=== PATIENT | female | born 1985 | race Caucasian/White ===

== ENCOUNTER 2018-03-13 18:37 | Emergency (ER) | payer MEDICAID ==
[2018-03-13 19:05] LABS: APPEARANCE CLEAR (CLEAR); BILIRUBIN NEGATIVE (NEGATIVE); COLOR YELLOW (YELLOW); GLUCOSE NEGATIVE (NEGATIVE); KETONE NEGATIVE (NEGATIVE); NITRITE NEGATIVE (NEGATIVE); PROTEIN NEGATIVE (NEGATIVE); UROBILINOGEN NORMAL (NORMAL)
[2018-03-13 21:15] LABS: BASOPHILS 0.1 % (0-2); EOSINOPHILS 2.4 % (0-7); HEMATOCRIT 29.6 % (36.0-48.0); HEMOGLOBIN 8.4 g/dL (12-16); IMMATURE GRANULOCYTES 0.1 % (0-5); MCH 25.5 pg (26.0-34.0); MCHC 28.4 g/dL (31.0-37.0); MEAN PLATELET VOLUME 12.3 fL (7.4-10.4); MONOCYTES 9.1 % (2-11); NEUTROPHILS 70.3 % (40-80); RBC 3.29 10x6/uL (4.00-5.40); RDW 20.7 % (11.5-14.5); WBC 8.6 10x3/uL (4.8-10.8)
[2018-03-13 21:28] LABS: PLATELET COUNT 185 10x3/uL (130-400)
[2018-03-13 21:47] LABS: ALBUMIN 3.6 g/dL (3.4-5.0); ALKALINE PHOSPHATASE 80 U/L (46-116); ALT (SGPT) 19 U/L (10-68); AMYLASE - SERUM 48 U/L (25-115); BILIRUBIN - TOTAL 0.58 mg/dL (0.2-1.3); CALC OSMOLALITY 279 mosm/kg (275-300); CALCIUM 9.3 mg/dL (8.5-10.1); CARBON DIOXIDE 35.2 mmol/L (21.0-32.0); CHLORIDE - SERUM 101 mmol/L (98-107); CREATININE - SERUM 0.8 mg/dL (0.6-1.3); GLUCOSE 82 mg/dL (74-106); LIPASE 170 U/L (73-393); POTASSIUM - SERUM 3.9 mmol/L (3.5-5.1); PROTEIN - SERUM 6.8 g/dL (6.4-8.2); SODIUM 141 mmol/L (136-145); UREA NITROGEN 13 mg/dL (7-18); eGFR NON AFRICAN AMERICAN 87 mL/min (90-120)
== END 2018-03-13 22:49 | disposition home or self-care (01) ==
LOC: D.ER 18:37
PROVIDERS: Emergency Medicine; Family Medicine
DX: R10.9 Unspecified abdominal pain (principal); D64.9 Anemia, unspecified; I10 Essential (primary) hypertension; F17.200 Nicotine dependence, unspecified, uncomplicated

== ENCOUNTER 2019-05-15 14:00 | Emergency (ER) | payer MEDICAID ==
[~2019-05-15] VITALS: Ht 160 cm; Wt 114.5 kg
[2019-05-15 14:11] VITALS: Ht 160 cm; Wt 114.5 kg
[2019-05-15] MEDS ORDERED: HYDRALAZINE HCL50 MG PO (14:13)
[2019-05-15] MEDS ORDERED: CATAPRES0.2 MG PO (14:13)
[2019-05-15] MEDS ORDERED: LASIX40 MG PO (14:13)
[2019-05-15] MEDS ORDERED: K-DUR20 MEQ PO (14:14)
[2019-05-15 14:24] LABS: BASOPHILS 0.1 % (0-2); EOSINOPHILS 2.3 % (0-7); HEMATOCRIT 33.9 % (36.0-48.0); HEMOGLOBIN 10.7 g/dL (12-16); IMMATURE GRANULOCYTES 0.1 % (0-5); MCH 29.9 pg (26.0-34.0); MCHC 31.6 g/dL (31.0-37.0); MCV 94.7 fL (80.0-100.0); MONOCYTES 7.8 % (2-11); NEUTROPHILS 72.7 % (40-80); PLATELET COUNT 198 10x3/uL (130-400); RBC 3.58 10x6/uL (4.00-5.40); WBC 8.8 10x3/uL (4.8-10.8)
[2019-05-15 15:02] LABS: ALBUMIN 3.7 g/dL (3.4-5.0); ALKALINE PHOSPHATASE 69 U/L (46-116); ALT (SGPT) 65 U/L (10-68); BILIRUBIN - TOTAL 0.29 mg/dL (0.2-1.3); CALC OSMOLALITY 280 mosm/kg (275-300); CALCIUM 8.9 mg/dL (8.5-10.1); CARBON DIOXIDE 31.7 mmol/L (21.0-32.0); CHLORIDE - SERUM 103 mmol/L (98-107); CREATININE - SERUM 0.7 mg/dL (0.6-1.3); GLUCOSE 87 mg/dL (74-106); POTASSIUM - SERUM 3.8 mmol/L (3.5-5.1); PROTEIN - SERUM 7.1 g/dL (6.4-8.2); SODIUM 141 mmol/L (136-145); UREA NITROGEN 15 mg/dL (7-18); eGFR NON AFRICAN AMERICAN > 90 mL/min (90-120)
[2019-05-15 15:15] LABS: CKMB 0.9 U/L (0.0-3.6); CREATINE KINASE 81 UL (21-215); PRO BNP 1684 pg/mL (0-125); TROPONIN-I 0.017 ng/mL (0.000-0.060)
[2019-05-15 17:13] LABS: APTT 24.8 SECONDS (22.8-39.4); INR 0.93 (0.85-1.17)
[2019-05-15 17:50] VITALS: BP 144/68
== END 2019-05-15 17:50 | disposition other institution (70) ==
LOC: D.ER 14:00
PROVIDERS: Family Medicine
DX: I71.01 Dissection of thoracic aorta (principal)

== ENCOUNTER 2019-08-09 16:36 | Inpatient (IN) | payer MEDICAID ==
[~2019-08-09] VITALS: Ht 160 cm; Wt 119.7 kg
[2019-08-09] VITALS (15 sets, daily range): BP systolic 125–219; BP diastolic 61–96; BMI 48.6
[~2019-08-09 16:36] MED LIST: CATAPRES0.2 MG PO; HYDRALAZINE HCL50 MG PO; K-DUR20 MEQ PO; LASIX40 MG PO
[2019-08-09 17:46] LABS: BASOPHILS 0.1 % (0-2); EOSINOPHILS 2.6 % (0-7); HEMATOCRIT 31.5 % (36.0-48.0); HEMOGLOBIN 9.4 g/dL (12-16); IMMATURE GRANULOCYTES 0.1 % (0-5); LYMPHOCYTES 20.6 % (15-50); MCH 26.6 pg (26.0-34.0); MCHC 29.8 g/dL (31.0-37.0); MEAN PLATELET VOLUME 12.7 fL (7.4-10.4); MONOCYTES 7.6 % (2-11); RBC 3.54 10x6/uL (4.00-5.40); RDW 14.5 % (11.5-14.5); WBC 6.9 10x3/uL (4.8-10.8)
[2019-08-09 17:47] LABS: PLATELET COUNT 128 10x3/uL (130-400)
[2019-08-09 17:50] LABS: INR 1.03 (0.85-1.17)
[2019-08-09 17:51] LABS: APTT 28.6 SECONDS (22.8-39.4)
[2019-08-09 17:55] LABS: ALBUMIN 3.6 g/dL (3.4-5.0); ALKALINE PHOSPHATASE 58 U/L (46-116); ALT (SGPT) 17 U/L (10-68); BILIRUBIN - TOTAL 0.25 mg/dL (0.2-1.3); CALC OSMOLALITY 280 mosm/kg (275-300); CALCIUM 8.3 mg/dL (8.5-10.1); CARBON DIOXIDE 32.7 mmol/L (21.0-32.0); CHLORIDE - SERUM 104 mmol/L (98-107); CREATININE - SERUM 0.7 mg/dL (0.6-1.3); GLUCOSE 95 mg/dL (74-106); POTASSIUM - SERUM 4.3 mmol/L (3.5-5.1); PROTEIN - SERUM 6.7 g/dL (6.4-8.2); SODIUM 141 mmol/L (136-145); UREA NITROGEN 13 mg/dL (7-18); eGFR NON AFRICAN AMERICAN > 90 mL/min (90-120)
[2019-08-09 18:07] LABS: CKMB 1.3 U/L (0.0-3.6); CREATINE KINASE 77 UL (21-215); MAGNESIUM - SERUM 1.7 mg/dL (1.8-2.4); TROPONIN-I 0.018 ng/mL (0.000-0.060)
[2019-08-09] MEDS ORDERED: LISINOPRIL5 MG PO (18:51)
[2019-08-09] MEDS ORDERED: HYDROCODON-ACE1 EA10 PO (18:52)
[2019-08-09] MEDS ORDERED: COREG25 MG PO (18:52)
--- NOTE | 2019-08-09 19:05 | NUR ---
PT RETURNED FROM CT VIA STRETCHER.
--- NOTE | 2019-08-09 20:03 | NUR ---
LABETALOL INFUSION STARTED AT THIS TIME.
--- NOTE | 2019-08-09 20:10 | NUR ---
PT C/O YEAGER RETURNING. PT RESTING ON BED. EDP NOTIFIED.
--- NOTE | 2019-08-09 20:53 | NUR ---
LABETALOL INFUSION RATE INCREASED TO 0.75MG/MIN
[2019-08-09 21:11] LABS: APPEARANCE CLEAR (CLEAR); BILIRUBIN NEGATIVE (NEGATIVE); COLOR YELLOW (YELLOW); GLUCOSE NEGATIVE (NEGATIVE); HCG URINE NEGATIVE (NEGATIVE); KETONE NEGATIVE (NEGATIVE); NITRITE NEGATIVE (NEGATIVE); PROTEIN NEGATIVE (NEGATIVE); SPECIFIC GRAVITY 1.005 (1.005-1.020); UROBILINOGEN NORMAL (NORMAL)
[2019-08-09 21:19] LABS: UDS - AMPHET NEGATIVE QUAL (NEGATIVE); UDS - BARB NEGATIVE QUAL (NEGATIVE); UDS - BENZO NEGATIVE QUAL (NEGATIVE); UDS - COCAINE NEGATIVE QUAL (NEGATIVE); UDS - OPIATE POSITIVE QUAL (NEGATIVE); UDS - PCP NEGATIVE QUAL (NEGATIVE); UDS - THC NEGATIVE QUAL (NEGATIVE)
--- NOTE | 2019-08-09 21:30 | NUR ---
REC'D TO 2301 VIA STRETCHER. PT AMB TO BSC, THEN TO BED.. ICU MONITORS ESTAB. LABETALOL GTT INFUSING - SEE FLOWSHEET.
--- NOTE | 2019-08-09 22:05 | NUR ---
PT GIVEN SANDWICH PER REQUEST, TITRATING LABETALOL GTT PER ORDERS. DR. CORDERO PAGED RE: PT C/O YEAGER, UNRELIEVED BY MORPHINE.
--- NOTE | 2019-08-09 22:19 | NUR ---
STATUS REPORT CALLED TO DR. CORDERO - NEW ORDERS REC'D.
[2019-08-09] MEDS ORDERED: BUSPAR5 MG PO (22:58)
[2019-08-09] MEDS ORDERED: ADALAT CC90 MG PO (23:00)
[2019-08-09] MEDS ORDERED: BAYER CHEWABLE81 MG PO (23:07)
[2019-08-09] MEDS ORDERED: TOPROL XL25 MG PO (23:08)
[2019-08-09] MEDS ORDERED: HYDROCODON-ACE1 EAC7 PO (23:09)
[2019-08-09] MEDS ORDERED: LASIX40 MG PO (23:17)
--- NOTE | 2019-08-09 23:19 | NUR ---
HOME MEDS REVIEWED WITH PT, PT HAS HOME MEDS WITH HER, PLACED IN MED BOX. WEANING LABETALOL GTT.
[2019-08-10] VITALS (32 sets, daily range): BP systolic 114–167; BP diastolic 54–96; Ht 160 cm; Wt 119.7 kg
--- NOTE | 2019-08-10 00:30 | NUR ---
RECEIVED REPORT FROM LIZ GARCIA RN
[2019-08-10 09:36] LABS: CKMB 0.6 U/L (0.0-3.6); CREATINE KINASE 38 UL (21-215); TROPONIN-I < 0.017 ng/mL (0.000-0.060)
--- NOTE | 2019-08-10 10:47 | NUR ---
GROUT WORKER RADHA BUCKLEY BY TO SEE PATIENT. BROUGHT NEW BATTERY AND JANITORIAL MANAGER FOR ANKLE MONITOR. RADHA Lynn [phone] OR cell [phone]
[2019-08-10 15:29] LABS: CKMB 0.9 U/L (0.0-3.6); CREATINE KINASE 45 UL (21-215)
[2019-08-10 15:30] LABS: TROPONIN-I < 0.017 ng/mL (0.000-0.060)
--- NOTE | 2019-08-10 16:04 | NUR ---
CRANBERRY JUICE PROVIDED AT REQUESTED. DENIES ANY ADDITIONAL NEEDS. CALL LIGHT IN REACH.
--- NOTE | 2019-08-10 21:00 | NUR ---
PT RESTING IN BED WATCHING TV. NO SIGNS OF DISTRESS AND NO COMPLAINTS NOTED AT THIS TIME. VSS. WILL CONTINUE TO MONITOR
[2019-08-10 21:48] LABS: CKMB 0.7 U/L (0.0-3.6); CREATINE KINASE 47 UL (21-215); TROPONIN-I < 0.017 ng/mL (0.000-0.060)
--- NOTE | 2019-08-10 23:00 | NUR ---
PT RESTING IN BED. NO SIGNS OF DISTRESS NOTED. VSS. REASSESSMENT COMPLETED. WILL CONTINUE TO MONITOR
[2019-08-11] VITALS (11 sets, daily range): BP systolic 127–165; BP diastolic 49–102
--- NOTE | 2019-08-11 01:00 | NUR ---
PT RESTING IN BED. NO COMPLAINTS NOTED AT THIS TIME. WILL CONTINUE TO MONITOR
--- NOTE | 2019-08-11 03:00 | NUR ---
PT RESTING IN BED. NO COMPLAINTS NOTED AT THIS TIME. REASSESSMENT COMPLETED. WILL CONTINUE TO MONITOR
[2019-08-11 04:27] LABS: BASOPHILS 0.1 % (0-2); EOSINOPHILS 3.1 % (0-7); HEMATOCRIT 35.3 % (36.0-48.0); HEMOGLOBIN 9.9 g/dL (12-16); IMMATURE GRANULOCYTES 0.3 % (0-5); LYMPHOCYTES 19.1 % (15-50); MCH 25.9 pg (26.0-34.0); MEAN PLATELET VOLUME 12.4 fL (7.4-10.4); MONOCYTES 6.3 % (2-11); NEUTROPHILS 71.1 % (40-80); PLATELET COUNT 142 10x3/uL (130-400); RBC 3.82 10x6/uL (4.00-5.40); RDW 14.7 % (11.5-14.5); WBC 7.4 10x3/uL (4.8-10.8)
[2019-08-11 04:39] LABS: MCV 92.4 fL (80.0-100.0)
[2019-08-11 04:41] LABS: ANION GAP 8.6 mmol/L (8-16); CALCIUM 8.9 mg/dL (8.5-10.1); CARBON DIOXIDE 38.3 mmol/L (21.0-32.0); POTASSIUM - SERUM 3.9 mmol/L (3.5-5.1)
--- NOTE | 2019-08-11 05:00 | NUR ---
PT RESTING IN BED. SUPPLIES AND INSTRUCTIONS GIVEN FOR CHG BATH. PT VERBALIZED UNDERSTANDING. VSS. WILL CONTINUE TO MONITOR
--- NOTE | 2019-08-11 07:00 | NUR ---
BEDSIDE REPORT GIVEN. ASSESSMENT COMPLETED PER FLOWSHEET, SEE FLOWSHEET FOR ADDITIONAL INFORMATION. PT C/O OF PAIN IN CHEST AND BREAST RATES 05/13. PAIN MEDICATION GIVEN PER ORDERS. NO NEEDS OR DISTRESS AT THIS TIME. WILL CONT TO MONITOR.
--- NOTE | 2019-08-11 07:00 | NUR ---
BEDSIDE REPORT RECEIVED. ASSESSMENT COMPLETED PER FLOWSHEET, SEE FLOWSHEET FOR ADDITIONAL INFORMATION. PT STATING "I'M GETTING OUT OF HERE TODAY, I'M LEAVING THIS HOSPITAL." FAMILY CALLED AND FAMILY STATED "I KNEW HE WOULD DO THIS, HE'S WANTING TO LEAVE TO SMOKE A CIGARETTE THAT'S ALL." CHARGE NURSE NOTIFIED. 0900 NICOTINE PATCH GIVEN. WILL CONT TO MONITOR.
--- NOTE | 2019-08-11 09:00 | NUR ---
PT IN BED WATCHING TV. NO NEEDS OR DISTRESS NOTED AT THIS TIME. VSS. WILL CONT TO MONITOR.
--- NOTE | 2019-08-11 09:00 | NUR ---
PT TURNING SELF IN BED. BREAKFAST GIVEN. VSS. WILL CONT TO MONITOR.
--- NOTE | 2019-08-11 09:41 | MORECARE ---
CASE MANAGEMENT DISCHARGE SUMMARY PATIENT: CASIMIRO MENJIVAR UNIT: [id number] ADM DATE: 08/09/19 AGE: 34 : 83 SEX: F ROOM/BED: D.2302 AUTHOR: BREONNA HARE PHYSICIAN: REFERRING PHYSICIAN: EVIE CORDERO MD DATE OF SERVICE: 08/11/19 Discharge Plan Patient Name: CASIMIRO MENJIVAR Facility: [facility]:[place] : 1985 Planned Disposition: Home Anticipated Discharge Date: Discharge Date: Expected LOS: Initial Reviewer: [email or web address] Initial Review Date: 08/10/2019 Generated: 08/11/19 10:41 am Patient Name: CASIMIRO MENJIVAR Page [id number] at 0941 All edits/amendments must be made on the electronic document DICTATION DATE: 08/11/19939 OPERATOR ASSISTANT I CEMENTING: PEDRO 08/11/19939 RPT#: [id number] DC DATE: STATUS: ADM IN [facility] [address] [place] [address] END OF REPORT
--- NOTE | 2019-08-11 09:48 | MORECARE ---
CASE MANAGEMENT DISCHARGE SUMMARY PATIENT: CASIMIRO MENJIVAR UNIT: [id number] ADM DATE: 08/09/19 AGE: 34 : 83 SEX: F ROOM/BED: D.2302 AUTHOR: PAYAM,DOC PHYSICIAN: REFERRING PHYSICIAN: EVIE CORDERO MD DATE OF SERVICE: 08/11/19 Discharge Plan Patient Name: CASIMIRO MENJIVAR Facility: [facility]:[place] : 1985 Planned Disposition: Home Anticipated Discharge Date: Discharge Date: Expected LOS: Initial Reviewer: [email or web address] Initial Review Date: 08/10/2019 Generated: 08/11/19 10:47 am Comments DCP- Discharge Planning Updated by [email or web address]: Rhina Dangelo on 08/11/19 8:[address] LATE ENTRY 08/10/19 1200 Patient Name: CASIMIRO MENJIVAR Admission Status: ER Accout number: [id number] Admission Date: 08-09-2019 : 1985 Admission Diagnosis: Attending: EVIE CORDERO Current LOS: 2 Anticipated DC Date: Planned Disposition: Home Primary Insurance[facility] Discharge Planning Comments: CM met with patient to complete initial dc planning assessment. CM educated patient on the CM role and verbal consent given by patient to complete assessment. Patient lives at home with her where she is independent with her care. At discharge patient plans to return home and feels this is a safe discharge. CM discussed availability of home health, rehab services, and medical equipment. Her family will drive her home. Patient asked about HH for B/P monitoring. BELLE signed (no preference) Patient denied known discharge needs at this time. CM will continue to follow and will assist as needed with dc plans/needs. Road Worker: Rhina Dangelo DCPIA - Discharge Planning Initial Assessment Updated by [email or web address]: Rhina Dangelo on 08/11/19 9:43 am * Is the patient Alert and Oriented? Yes * How many steps to enter\exit or inside your home? * PCP [facility] * Pharmacy [facility] * Preadmission Environment Home with Family * ADLs Independent * Equipment None * List name and contact numbers for known caregivers / representatives who currently or will assist patient after discharge: MISAEL CARDENAS - FATHER - [phone] LISBET CARDENAS - MOTHER - [phone] * Verbal permission to speak to the caregivers and representatives has been obtained from the patient. Yes * Community resources currently utilized None * Additional services required to return to the preadmission environment? No * Can the patient safely return to the preadmission environment? Yes * Has this patient been hospitalized within the prior 30 days at any hospital? No Coverage Notice Reviewer: [email or web address] Nat Dangelo Notice Issued Date-Time: 08/10/2019 12:00 Notice Type: Patient Choice Letter Notice Delivered To: Patient Relationship to Patient: [facility] Director Name: Delivery Method: - Siomara Days: Prior Verbal Notification: Recipient Understood Notice: Recipient Signature: Med Rec Note Co-signed by Attending: Coverage Notice Comment: Last DP export: 08/11/19 8:41 a Patient Name: CASIMIRO MENJIVAR Page [id number] at 0948 All edits/amendments must be made on the electronic document DICTATION DATE: 08/11/19946 MELT HOUSE SUPERVISOR: PEDRO 08/11/19946 RPT#: [id number] DC DATE: STATUS: ADM IN [facility] [address] [place] [address] END OF REPORT
--- NOTE | 2019-08-11 11:00 | NUR ---
ASSESSMENT COMPLETED PER FLOWSHEET. NO NEEDS OR DISTRESS NOTED. TURNED PT TO LEFT SIDE. VSS. WILL CONT TO MONITOR.
[2019-08-11] MEDS ORDERED: LISINOPRIL10 MG PO (12:24)
[2019-08-11] MEDS ORDERED: LASIX40 MG PO (12:25)
--- NOTE | 2019-08-11 18:45 | MORECARE ---
CASE MANAGEMENT DISCHARGE SUMMARY PATIENT: CASIMIRO MENJIVAR UNIT: [id number] ADM DATE: 08/09/19 AGE: 34 : 83 SEX: F ROOM/BED: D.2302 AUTHOR: BREONNA HARE PHYSICIAN: REFERRING PHYSICIAN: EVIE CORDERO MD DATE OF SERVICE: 08/11/19 Discharge Plan Patient Name: CASIMIRO MENJIVAR Facility: [facility]:[place] : 1985 Planned Disposition: Home Anticipated Discharge Date: Discharge Date: 08/11/2019 Expected LOS: Initial Reviewer: [email or web address] Initial Review Date: 08/10/2019 Generated: 08/11/19 7:45 pm Comments DCP- Discharge Planning Updated by [email or web address]: Rhina Dangelo on 08/11/19 5:[address] Patient Name: CASIMIRO MENJIVAR Encounter No: [id number] : 1985 Primary Insurance: [employer] JACQUES Anticipated DC Date: Planned Disposition: Home External Planned Provider: : Patient to follow up with PCP regarding HH DCP follow-up note: Patient and family in agreement with discharge plan. No changes to plan. Case management will follow and assist as needed. Rhina Dangelo DCP- Discharge Planning Updated by [email or web address]: Rhina Dangelo on 08/11/19 8:[address] LATE ENTRY 08/10/19 1200 Patient Name: CASIMIRO MENJIVAR Admission Status: ER Accout number: [id number] Admission Date: 08-09-2019 : 1985 Admission Diagnosis: Attending: EVIE CORDERO Current LOS: 2 Anticipated DC Date: Planned Disposition: Home Primary Insurance: [employer] JACQUES Discharge Planning Comments: CM met with patient to complete initial dc planning assessment. CM educated patient on the CM role and verbal consent given by patient to complete assessment. Patient lives at home with her where she is independent with her care. At discharge patient plans to return home and feels this is a safe discharge. CM discussed availability of home health, rehab services, and medical equipment. Her family will drive her home. Patient asked about HH for B/P monitoring. BELLE signed (no preference) Patient denied known discharge needs at this time. CM will continue to follow and will assist as needed with dc plans/needs. Counterperson: Rhina Dangelo DCPIA - Discharge Planning Initial Assessment Updated by [email or web address]: Rhina Dangelo on 08/11/19 9:43 am * Is the patient Alert and Oriented? Yes * How many steps to enter\exit or inside your home? * PCP [facility] * Pharmacy [facility] * Preadmission Environment Home with Family * ADLs Independent * Equipment None * List name and contact numbers for known caregivers / representatives who currently or will assist patient after discharge: MISAEL CARDENAS - FATHER - [phone] LISBET Johns MOTHER - [phone] * Verbal permission to speak to the caregivers and representatives has been obtained from the patient. Yes * Community resources currently utilized None * Additional services required to return to the preadmission environment? No * Can the patient safely return to the preadmission environment? Yes * Has this patient been hospitalized within the prior 30 days at any hospital? No Coverage Notice Reviewer: [email or web address] - Rhina Dangelo Notice Issued Date-Time: 08/10/2019 12:00 Notice Type: Patient Choice Letter Notice Delivered To: Patient Relationship to Patient: Self Accounts Specialist Name: Delivery Method: - Siomara Days: Prior Verbal Notification: Recipient Understood Notice: Recipient Signature: Med Rec Note Co-signed by Attending: Coverage Notice Comment: Last DP export: 08/11/19 8:48 a Patient Name: CASIMIRO MENJIVAR Page 19407 at 1845 All edits/amendments must be made on the electronic document DICTATION DATE: 08/11/191844 MICROBIOLOGY SUPERVISOR: PEDRO 08/11/191844 RPT#: [id number] DC DATE:08/11/19 STATUS: DIS IN [facility] [address] [place] [address] END OF REPORT
--- NOTE | 2019-08-13 13:30 | EC ---
PATIENT:CASIMIRO MENJIVAR DATE OF SERVICE: 08/09/19 SEX: F MEDICAL RECORD: [id number] DATE OF : [birth year] LOCATION:[facility] [address] AGE OF PATIENT: 34 ADMISSION DATE: 08/09/19 REFERRING PHYSICIAN: INTERPRETING PHYSICIAN: RASHEED CHANDLER MD ECHOCARDIOGRAM REPORT ECHO CHARGES 4 ECHO COMPLETE Date: 08/10/19 CLINICAL DIAGNOSIS: CP ECHOCARDIOGRAPHIC MEASUREMENTS (adult normal given) AC root (d.<3.7cm) 2.8 cm LV Septum d (<1.2 cm> 1.6 cm Valve Excursion 1.4 cm LV Septum (systole) 1.7 cm Left Atria (s.<4.0cm> 4.5 cm LVPW d(<1.2cm) 1.2 cm RV (d.<2.3cm) 2.6 cm LVPW (sytole) 1.4 cm LV diastole(<5.6CM) 5.4 cm MV E-F(>70mm/sec) cm LV systole 4.2 cm LVOT Diameter 2.2 cm MV exc.(>10mm) cm Est.ejection fraction (50-75%) % DOPPLER: LVIT cm/sec A 63 cm/sec E 93 cm/sec LA cm/sec RVSP 32.3 mmHg LVOT 92 cm/sec AOP1/2T m/s Asc. Ao 142 cm/sec RVOT 81 cm/sec RA cm/sec PA 78 cm/sec AV Gradient Peak 8.1 mmHg AV Mean 4.1 mmHg AV Area 3.3 cm MV Gradient Peak 5.9 mmHg MV Mean 2.5 mmHg MV Area cm COMMENTS: Core Sucker: Delfino [facility] Bookseamer Blindstitch: 1 Dr. Chandler TAPE# PACS Pericardial Effusion N DATE OF SERVICE: PROCEDURE: Echocardiogram. FINDINGS: 1. Left ventricular chamber size is within normal limits. Left ventricular systolic function is normal. Overall ejection fraction estimated at 55%. 2. Left atrium is enlarged at 4.5 cm. Right atrium and right ventricular chamber sizes are as well mildly dilated. 3. Valvular structures have normal structure and motion. ECHOCARDIOGRAM REPORT [id number] CASIMIRO MENJIVAR 4. Doppler interrogation reveals trace mitral regurgitation, mild tricuspid regurgitation, no other valvular insufficiency or stenosis. Pulmonary systolic pressure is estimated at 32 mmHg. 5. No evidence of pericardial effusion or left ventricular thrombus. TRANSINT:[id number] Voice Confirmation ID: [id number] DOCUMENT ID: [id number] RASHEED CHANDLER MD at 1330 CC: [id number] DICTATION DATE: 08/11/19 1203 DIRECTOR CRAFT CENTER: 08/11/19 1251 DIS IN 08/11/19 [facility] [address] [place] [id number]
== END 2019-08-11 13:15 | disposition home or self-care (01) | DRG 304 ==
LOC: D.ER 16:36 → D.ICU 20:48
PROVIDERS: Emergency Medicine; Family Medicine; ADMIT Internal Medicine Nephrology; ATTEND Internal Medicine Nephrology
DX: I16.0 Hypertensive urgency (principal); I71.02 Dissection of abdominal aorta; Z68.42 Body mass index [BMI] 45.0-49.9, adult; I42.9 Cardiomyopathy, unspecified; I11.0 Hypertensive heart disease with heart failure; I50.9 Heart failure, unspecified; D64.9 Anemia, unspecified; E83.42 Hypomagnesemia; E66.01 Morbid (severe) obesity due to excess calories

== ENCOUNTER 2019-10-06 15:16 | Emergency (ER) | payer MEDICAID ==
[~2019-10-06] VITALS: Ht 162.6 cm; Wt 119.1 kg
[~2019-10-06 15:16] MED LIST changes: +ADALAT CC90 MG PO; +BAYER CHEWABLE81 MG PO; +BUSPAR5 MG PO; +COREG25 MG PO; +HYDROCODON-ACE1 EA10 PO; +HYDROCODON-ACE1 EAC7 PO; +LISINOPRIL10 MG PO; +LISINOPRIL5 MG PO; +TOPROL XL25 MG PO
[2019-10-06 15:42] VITALS: Ht 162.6 cm; Wt 119.1 kg
[2019-10-06] MEDS ORDERED: CATAPRES0.1 MG PO (15:46)
[2019-10-06 16:46] LABS: BASOPHILS 0.3 % (0-2); EOSINOPHILS 1.9 % (0-7); HEMATOCRIT 32.7 % (36.0-48.0); HEMOGLOBIN 9.1 g/dL (12-16); IMMATURE GRANULOCYTES 0.2 % (0-5); LYMPHOCYTES 23.2 % (15-50); MCH 25.2 pg (26.0-34.0); MCHC 27.8 g/dL (31.0-37.0); MCV 90.6 fL (80.0-100.0); MEAN PLATELET VOLUME 12.7 fL (7.4-10.4); MONOCYTES 6.6 % (2-11); NEUTROPHILS 67.8 % (40-80); PLATELET COUNT 119 10x3/uL (130-400); RBC 3.61 10x6/uL (4.00-5.40); RDW 16.2 % (11.5-14.5); WBC 6.2 10x3/uL (4.8-10.8)
[2019-10-06 17:00] LABS: CALC OSMOLALITY 277 mosm/kg (275-300); CALCIUM 8.8 mg/dL (8.5-10.1); CARBON DIOXIDE 33.7 mmol/L (21.0-32.0); CHLORIDE - SERUM 104 mmol/L (98-107); CREATININE - SERUM 0.7 mg/dL (0.6-1.3); GLUCOSE 79 mg/dL (74-106); POTASSIUM - SERUM 4.2 mmol/L (3.5-5.1); SODIUM 140 mmol/L (136-145); UREA NITROGEN 13 mg/dL (7-18); eGFR NON AFRICAN AMERICAN > 90 mL/min (90-120)
[2019-10-06 17:05] LABS: ALBUMIN 3.7 g/dL (3.4-5.0); ALKALINE PHOSPHATASE 71 U/L (46-116); ALT (SGPT) 24 U/L (10-68); AMYLASE - SERUM 36 U/L (25-115); BILIRUBIN - TOTAL 0.23 mg/dL (0.2-1.3); LIPASE 83 U/L (73-393); PROTEIN - SERUM 7.4 g/dL (6.4-8.2); TROPONIN-I < 0.017 ng/mL (0.000-0.060)
[2019-10-06 17:42] LABS: APPEARANCE CLEAR (CLEAR); BILIRUBIN NEGATIVE (NEGATIVE); COLOR YELLOW (YELLOW); GLUCOSE NEGATIVE (NEGATIVE); KETONE NEGATIVE (NEGATIVE); NITRITE NEGATIVE (NEGATIVE); PROTEIN NEGATIVE (NEGATIVE); SPECIFIC GRAVITY 1.025 (1.005-1.020); UROBILINOGEN NORMAL (NORMAL)
[2019-10-06 17:43] LABS: EPITHELIAL CELLS 0-5 /hpf (0-5); RED CELLS - URINE 0-5 /hpf (0-5); WHITE CELLS - URINE 0-5 /hpf (NEGATIVE)
[2019-10-06 17:44] LABS: BACTERIA MODERATE /hpf (NEGATIVE)
[2019-10-06] MEDS ORDERED: PHENERGAN25 M1 PO (19:13)
[2019-10-06 19:44] VITALS: BP 161/63
== END 2019-10-06 19:12 | disposition home or self-care (01) ==
LOC: D.ER 15:16
PROVIDERS: Family Medicine
DX: R11.2 Nausea with vomiting, unspecified (principal); B34.9 Viral infection, unspecified; I11.0 Hypertensive heart disease with heart failure; I50.9 Heart failure, unspecified

== ENCOUNTER 2019-11-25 19:17 | Emergency (ER) | payer OTHER ==
[~2019-11-25] VITALS: Ht 162.6 cm; Wt 122.7 kg
[~2019-11-25 19:17] MED LIST changes: +CATAPRES0.1 MG PO; +PHENERGAN25 M1 PO
[2019-11-25 19:19] VITALS: Ht 162.6 cm; Wt 122.7 kg
[2019-11-25 21:00] LABS: APPEARANCE CLEAR (CLEAR); BILIRUBIN NEGATIVE (NEGATIVE); COLOR YELLOW (YELLOW); GLUCOSE NEGATIVE (NEGATIVE); KETONE NEGATIVE (NEGATIVE); NITRITE NEGATIVE (NEGATIVE); PROTEIN NEGATIVE (NEGATIVE); SPECIFIC GRAVITY 1.015 (1.005-1.020); UROBILINOGEN NORMAL (NORMAL)
[2019-11-25 21:02] LABS: BACTERIA FEW /hpf (NEGATIVE); EPITHELIAL CELLS 0-5 /hpf (0-5); RED CELLS - URINE OCC /hpf (0-5)
[2019-11-25 21:29] LABS: BASOPHILS 0.2 % (0-2); EOSINOPHILS 0.7 % (0-7); HEMATOCRIT 31.8 % (36.0-48.0); HEMOGLOBIN 9.2 g/dL (12-16); IMMATURE GRANULOCYTES 0.1 % (0-5); LYMPHOCYTES 15.6 % (15-50); MCH 24.4 pg (26.0-34.0); MCHC 28.9 g/dL (31.0-37.0); MCV 84.4 fL (80.0-100.0); MEAN PLATELET VOLUME 11.2 fL (7.4-10.4); MONOCYTES 6.1 % (2-11); NEUTROPHILS 77.3 % (40-80); RBC 3.77 10x6/uL (4.00-5.40); RDW 17.4 % (11.5-14.5); WBC 9.8 10x3/uL (4.8-10.8)
[2019-11-25 21:33] LABS: CALC OSMOLALITY 280 mosm/kg (275-300); CALCIUM 8.6 mg/dL (8.5-10.1); CARBON DIOXIDE 32.8 mmol/L (21.0-32.0); CHLORIDE - SERUM 104 mmol/L (98-107); GLUCOSE 95 mg/dL (74-106); PLATELET COUNT 200 10x3/uL (130-400); POTASSIUM - SERUM 3.6 mmol/L (3.5-5.1); SODIUM 140 mmol/L (136-145); UREA NITROGEN 17 mg/dL (7-18); eGFR NON AFRICAN AMERICAN 67 mL/min (90-120)
[2019-11-25 21:35] LABS: HCG SERUM NEGATIVE (NEGATIVE)
[2019-11-25 21:48] LABS: ALBUMIN 3.6 g/dL (3.4-5.0); ALKALINE PHOSPHATASE 60 U/L (46-116); ALT (SGPT) 19 U/L (10-68); BILIRUBIN - TOTAL 0.27 mg/dL (0.2-1.3); CKMB 1.2 U/L (0.0-3.6); CREATINE KINASE 96 UL (21-215); MAGNESIUM - SERUM 1.9 mg/dL (1.8-2.4); PROTEIN - SERUM 7.1 g/dL (6.4-8.2)
[2019-11-25 21:50] LABS: TROPONIN-I < 0.017 ng/mL (0.000-0.060)
[2019-11-26 01:10] VITALS: BP 162/59
== END 2019-11-26 01:13 | disposition other institution (70) ==
LOC: D.ER 19:17
PROVIDERS: Family Medicine
DX: I16.9 Hypertensive crisis, unspecified (principal); I71.02 Dissection of abdominal aorta; R07.9 Chest pain, unspecified

== ENCOUNTER 2019-12-26 12:34 | Emergency (ER) | payer OTHER ==
[~2019-12-26] VITALS: Ht 162.6 cm; Wt 119.1 kg
[~2019-12-26 12:34] MED LIST changes: +LASIX80 MG PO; +NORVASC10 MG PO
[2019-12-26 12:36] VITALS: Ht 162.6 cm; Wt 119.1 kg
[2019-12-26 13:12] LABS: BASOPHILS 0.2 % (0-2); EOSINOPHILS 1.7 % (0-7); HEMATOCRIT 34.3 % (36.0-48.0); HEMOGLOBIN 9.9 g/dL (12-16); IMMATURE GRANULOCYTES 0.2 % (0-5); LYMPHOCYTES 16.8 % (15-50); MCH 24.5 pg (26.0-34.0); MCHC 28.9 g/dL (31.0-37.0); MCV 84.9 fL (80.0-100.0); MEAN PLATELET VOLUME 11.8 fL (7.4-10.4); MONOCYTES 5.7 % (2-11); NEUTROPHILS 75.4 % (40-80); PLATELET COUNT 164 10x3/uL (130-400); RBC 4.04 10x6/uL (4.00-5.40); RDW 17.8 % (11.5-14.5); WBC 8.3 10x3/uL (4.8-10.8)
[2019-12-26 13:19] LABS: CALC OSMOLALITY 281 mosm/kg (275-300); CALCIUM 8.7 mg/dL (8.5-10.1); CARBON DIOXIDE 29.8 mmol/L (21.0-32.0); CHLORIDE - SERUM 103 mmol/L (98-107); CREATININE - SERUM 0.7 mg/dL (0.6-1.3); GLUCOSE 110 mg/dL (74-106); POTASSIUM - SERUM 4.3 mmol/L (3.5-5.1); SODIUM 141 mmol/L (136-145); UREA NITROGEN 12 mg/dL (7-18); eGFR NON AFRICAN AMERICAN > 90 mL/min (90-120)
[2019-12-26 13:22] LABS: HCG SERUM NEGATIVE (NEGATIVE)
[2019-12-26 13:30] LABS: APTT 25.6 SECONDS (22.8-39.4); INR 0.98 (0.85-1.17); PROTIME 12.9 SECONDS (11.6-15.0)
[2019-12-26 13:37] LABS: ALBUMIN 3.7 g/dL (3.4-5.0); ALKALINE PHOSPHATASE 66 U/L (30-120); ALT (SGPT) 19 U/L (10-68); BILIRUBIN - TOTAL 0.24 mg/dL (0.2-1.3); CKMB 0.4 U/L (0.0-3.6); CREATINE KINASE 54 UL (21-215); MAGNESIUM - SERUM 1.9 mg/dL (1.8-2.4); PROTEIN - SERUM 7.2 g/dL (6.4-8.2)
[2019-12-26 13:38] LABS: TROPONIN-I < 0.017 ng/mL (0.000-0.060)
[2019-12-26 19:48] VITALS: BP 158/79
== END 2019-12-26 19:48 | disposition home or self-care (01) ==
LOC: D.ER 12:34
PROVIDERS: Family Medicine
DX: I71.00 Dissection of unspecified site of aorta (principal); R07.9 Chest pain, unspecified; I10 Essential (primary) hypertension

== ENCOUNTER 2020-01-12 13:29 | Emergency (ER) | payer OTHER ==
[~2020-01-12] VITALS: Ht 162.6 cm; Wt 119.1 kg
[2020-01-12 13:32] VITALS: Ht 162.6 cm; Wt 119.1 kg
[2020-01-12 14:11] LABS: CALC OSMOLALITY 278 mosm/kg (275-300); CALCIUM 9.1 mg/dL (8.5-10.1); CARBON DIOXIDE 31.4 mmol/L (21.0-32.0); CHLORIDE - SERUM 104 mmol/L (98-107); CREATININE - SERUM 0.7 mg/dL (0.6-1.3); GLUCOSE 84 mg/dL (74-106); POTASSIUM - SERUM 4.1 mmol/L (3.5-5.1); SODIUM 140 mmol/L (136-145); UREA NITROGEN 14 mg/dL (7-18); eGFR NON AFRICAN AMERICAN > 90 mL/min (90-120)
[2020-01-12 14:15] LABS: APTT 26.2 SECONDS (22.8-39.4)
[2020-01-12 14:28] LABS: ALBUMIN 3.9 g/dL (3.4-5.0); ALKALINE PHOSPHATASE 59 U/L (30-120); ALT (SGPT) 16 U/L (10-68); BILIRUBIN - TOTAL 0.32 mg/dL (0.2-1.3); CKMB 0.5 U/L (0.0-3.6); CREATINE KINASE 54 UL (21-215); MAGNESIUM - SERUM 2.1 mg/dL (1.8-2.4); PROTEIN - SERUM 7.2 g/dL (6.4-8.2)
[2020-01-12 14:36] LABS: INR 0.92 (0.85-1.17); PROTIME 12.3 SECONDS (11.6-15.0)
[2020-01-12 14:42] LABS: TROPONIN-I < 0.017 ng/mL (0.000-0.060)
[2020-01-12 14:51] LABS: BASOPHILS 0.3 % (0-2); EOSINOPHILS 2.3 % (0-7); HEMATOCRIT 30.8 % (36.0-48.0); HEMOGLOBIN 9.1 g/dL (12-16); IMMATURE GRANULOCYTES 0.3 % (0-5); LYMPHOCYTES 16.2 % (15-50); MCH 24.8 pg (26.0-34.0); MCHC 29.5 g/dL (31.0-37.0); MCV 83.9 fL (80.0-100.0); MONOCYTES 5.4 % (2-11); NEUTROPHILS 75.5 % (40-80); PLATELET COUNT 141 10x3/uL (130-400); RBC 3.67 10x6/uL (4.00-5.40); RDW 18.2 % (11.5-14.5); WBC 7.7 10x3/uL (4.8-10.8)
[2020-01-12 18:00] VITALS: BP 149/79
== END 2020-01-12 18:11 | disposition other institution (70) ==
LOC: D.ER 13:29
PROVIDERS: Family Medicine
DX: I71.01 Dissection of thoracic aorta (principal); I10 Essential (primary) hypertension; I71.02 Dissection of abdominal aorta

== ENCOUNTER 2020-01-20 15:37 | Emergency (ER) | payer OTHER ==
[~2020-01-20] VITALS: Ht 162.6 cm; Wt 119.1 kg
[2020-01-20 16:13] VITALS: Ht 162.6 cm; Wt 119.1 kg
[2020-01-20 17:02] LABS: BASOPHILS 0.3 % (0-2); EOSINOPHILS 1.8 % (0-7); HEMATOCRIT 31.7 % (36.0-48.0); HEMOGLOBIN 9.1 g/dL (12-16); IMMATURE GRANULOCYTES 0.1 % (0-5); LYMPHOCYTES 18.3 % (15-50); MCH 24.7 pg (26.0-34.0); MCHC 28.7 g/dL (31.0-37.0); MCV 85.9 fL (80.0-100.0); MEAN PLATELET VOLUME 11.2 fL (7.4-10.4); MONOCYTES 6.2 % (2-11); NEUTROPHILS 73.3 % (40-80); PLATELET COUNT 131 10x3/uL (130-400); RBC 3.69 10x6/uL (4.00-5.40); RDW 17.4 % (11.5-14.5); WBC 7.1 10x3/uL (4.8-10.8)
[2020-01-20 17:10] LABS: PROTIME 13.2 SECONDS (11.6-15.0)
[2020-01-20 17:12] LABS: CALC OSMOLALITY 279 mosm/kg (275-300); CALCIUM 9.2 mg/dL (8.5-10.1); CARBON DIOXIDE 29.3 mmol/L (21.0-32.0); CHLORIDE - SERUM 105 mmol/L (98-107); CREATININE - SERUM 0.7 mg/dL (0.6-1.3); GLUCOSE 97 mg/dL (74-106); POTASSIUM - SERUM 4.4 mmol/L (3.5-5.1); SODIUM 139 mmol/L (136-145); UREA NITROGEN 18 mg/dL (7-18); eGFR NON AFRICAN AMERICAN > 90 mL/min (90-120)
[2020-01-20 17:17] LABS: UDS - AMPHET NEGATIVE QUAL (NEGATIVE); UDS - BARB NEGATIVE QUAL (NEGATIVE); UDS - BENZO NEGATIVE QUAL (NEGATIVE); UDS - COCAINE NEGATIVE QUAL (NEGATIVE); UDS - OPIATE POSITIVE QUAL (NEGATIVE); UDS - PCP NEGATIVE QUAL (NEGATIVE); UDS - THC NEGATIVE QUAL (NEGATIVE)
[2020-01-20 17:26] LABS: ALBUMIN 3.9 g/dL (3.4-5.0); ALKALINE PHOSPHATASE 65 U/L (30-120); ALT (SGPT) 16 U/L (10-68); BILIRUBIN - TOTAL 0.37 mg/dL (0.2-1.3); CKMB 0.5 U/L (0.0-3.6); CREATINE KINASE 49 UL (21-215); MAGNESIUM - SERUM 1.8 mg/dL (1.8-2.4); PROTEIN - SERUM 7.1 g/dL (6.4-8.2); TROPONIN-I < 0.017 ng/mL (0.000-0.060)
[2020-01-20 17:31] LABS: BILIRUBIN NEGATIVE (NEGATIVE); GLUCOSE NEGATIVE (NEGATIVE); KETONE NEGATIVE (NEGATIVE); NITRITE NEGATIVE (NEGATIVE); SPECIFIC GRAVITY 1.025 (1.005-1.020); UROBILINOGEN NORMAL (NORMAL)
[2020-01-20] MEDS ORDERED: CATAPRES0.1 MG PO (17:56)
[2020-01-20] MEDS ORDERED: FERROUS SULFAT325 MG PO (17:57)
[2020-01-20 18:08] VITALS: BP 159/76
== END 2020-01-20 18:10 | disposition home or self-care (01) ==
LOC: D.ER 15:37
PROVIDERS: Emergency Medicine
DX: F15.93 Other stimulant use, unspecified with withdrawal (principal); D64.9 Anemia, unspecified; I10 Essential (primary) hypertension